=== PATIENT | female | born 1985 | race Caucasian/White ===

== ENCOUNTER 2019-08-12 15:27 | Outpatient (CLI) | payer BC ==
--- NOTE | 2019-08-12 16:27 | ULT ---
THYROID ULTRASOUND INDICATION: History of hyperfunctioning right thyroid lobe or nodules status post I-131 therapy in [facility] 2006 TECHNIQUE: Grayscale and color Doppler images were obtained of the thyroid gland. COMPARISON: Thyroid ultrasound dated July 15, 2005, thyroid uptake evaluation dated October 10 7 FINDINGS: Right thyroid lobe: The right thyroid lobe measures 4.6 x 1.3 x 1.6 cm. Within the region of the larg e partially cystic nodules seen involving the right thyroid lobe on the comparison thyroid ultrasound are large areas of peripheral macrocalcifications which may reflect dystrophic calcificati on of the nodule from prior therapy. Within the superior right thyroid lobe is a 1.0 x 0.9 cm shadowing, hyperechoic solid mass with lobular borders. Within the mid right thyroid lobe is a 0.95 x 0.9 cm solid hyperechoic mass with shadowing peripheral macrocalcifications. Within the lower pole the right thyroid lobe is a 0.85 x 0.7 cm hyperechoic mass with peripheral shadowing macrocalcificati ons. Thyroid isthmus: The thyroid isthmus measures 0.19 cm. There is a 4.5 mm well-circumscribed, centrall y hyperechoic, peripherally hypoechoic nodule, right of midline within the isthmus. Left thyroid lobe: The left thyroid lobe measures 4.0 x 1.1 x 1.2 cm. There is a 4.3 x 4.1 mm hyperec hoic, well-circumscribed nodule interpolar of the left thyroid lobe. There is a 6.2 x 3.8 mm hypoechoic lobulated nodule in the mid left thyroid lobe. IMPRESSION: 1. Large nodules within the right thyroid lobe are consistent with a TIRADS 4 lesions. Would recommen d a follow-up ultrasound in one year to document stability. 2. TIRADS 3 lesions within the left thyroid lobe and right aspect of the isthmus. These lesions are b elow 1.5 cm in size. No additional follow-up is recommended.
== END 2019-08-12 15:28 | disposition home or self-care (01) ==
LOC: BICULT 15:27
PROVIDERS: ATTEND Internal Medicine Endocrinology, Diabetes & Metabolism
DX: R94.6 Abnormal results of thyroid function studies (principal); E04.2 Nontoxic multinodular goiter; E07.89 Other specified disorders of thyroid
CPT/HCPCS: 76536

== ENCOUNTER 2022-07-28 06:25 | Day surgery (SDC) | payer BC ==
[2022-07-27 09:46] VITALS: BMI 27.3
[2022-07-28] MEDS ORDERED: Isoproterenol 0.2 MG/1 ML AMP ONE (07:20)
[2022-07-28] MEDS ORDERED: Lidocaine 1% (PF) 30 ML VIAL ONE (07:20)
[2022-07-28] MEDS ORDERED: Heparin 10,000 UNITS/ 10 ML VIAL ONE (07:20)
[2022-07-28] MEDS ORDERED: Fentanyl 250 MCG/5 ML VIAL ONE (07:23)
[2022-07-28] MEDS ORDERED: Magnesium 5 GM/10 ML Abboject SYRINGE ONE (08:06)
[2022-07-28] MEDS ORDERED: PHENYLEPHRINE-NS 100 MCG/ML 10 ML SYRINGE ONE (08:21)
[2022-07-28] MEDS ORDERED: Propofol 1,000 MG/100 ML VIAL IV ONE (08:34)
[2022-07-28] MEDS ORDERED: Fentanyl 100 MCG/2 ML VIAL ONE (10:37)
== END 2022-07-28 13:44 | disposition home or self-care (01) ==
LOC: SDC 06:25
PROVIDERS: ATTEND Internal Medicine Cardiovascular Disease
PROC: 02K83ZZ Map Conduction Mechanism, Percutaneous Approach (ICD-10-PCS; principal; 2022-07-28)
PROC: 4A023FZ Measurement of Cardiac Rhythm, Percutaneous Approach (ICD-10-PCS; principal; 2022-07-28)
PROC: 4A0234Z Measurement of Cardiac Electrical Activity, Percutaneous Approach (ICD-10-PCS; principal; 2022-07-28)
DX: I47.1 Supraventricular tachycardia (principal); I10 Essential (primary) hypertension; E03.9 Hypothyroidism, unspecified; E25.0 Congenital adrenogenital disorders associated with enzyme deficiency; Z87.891 Personal history of nicotine dependence; Z79.890 Hormone replacement therapy; Z91.013 Allergy to seafood; Z98.84 Bariatric surgery status
CPT/HCPCS: 93005; 93620; 93623; 93653; C1730; C1732; C1760; C1769; C1894; J1644; J2001; J2704; J3010; J3475